=== PATIENT | female | born 1975 | race African-American/Black ===

== ENCOUNTER 2017-04-03 08:18 | Outpatient (CLI) | payer BC ==
--- NOTE | 2017-04-03 14:20 | Mammography Report ---
BILATERAL DIGITAL SCREENING MAMMOGRAM with CAD : 04/03/17 08:18:00 CLINICAL: Routine screening. COMPARISON:02/20/16 and 08/30/13 FINDINGS: The breasts are heterogeneously dense, which may obscure small masses. No mass, architectural distortion or suspicious calcifications. IMPRESSION: No mammographic evidence of malignancy. BI-RADS CATEGORY: 2 -- Benign RECOMMENDATION: Routine mammographic screening in one year. COMMENT: Patient follow-up letters are generated by our [employer] application.
== END 2017-04-03 08:19 | disposition home or self-care (01) ==
LOC: SPVWC 08:18
PROVIDERS: ATTEND Obstetrics & Gynecology
DX: Z12.31 Encounter for screening mammogram for malignant neoplasm of breast (principal)
CPT/HCPCS: 77067; G0202

== ENCOUNTER 2019-03-04 13:41 | Outpatient (CLI) | payer BC ==
--- NOTE | 2019-03-08 08:25 | Mammography Report ---
DIGITAL SCREENING MAMMOGRAM WITH TOMOSYNTHESIS WITH CAD, 03/04/2019 INDICATION: Routine Screening Mammography. TECHNIQUE: Digital bilateral 2D and 3D mammography with tomosynthesis was obtained in the craniocaud al and mediolateral oblique projections. Computer-Aided Detection (CAD) analysis was used for interp retation of this study. COMPARISON: 04/03/2017 and 02/20/2016 FINDINGS: Breast Density: The breasts are heterogeneously dense, which may obscure small masses. Bilateral asymmetries require additional imaging. A right lower inner oval circumscribed density imag e 43 of the MLO yvette series and image 11 of the CC yvette series. A left lower inner focal asymmetry im age 11 of the CC yvette series and image 43 of the MLO yvette series and an oval left retroareolar descri bed density image 26 of the CC yvette series and image 35 of the MLO yvette series. No architectural dist ortion or suspicious calcifications. IMPRESSION: Bilateral asymmetries requiring additional imaging. Recommend recall for left spot magnif ication views and bilateral targeted breast ultrasound. BI-RADS Category 0: Incomplete. Needs additional imaging evaluation and/or prior mammograms for fidencio rison. A "normal" or negative report should not discourage follow up or biopsy of a clinically significant f inding. A written summary of these findings will be mailed to the patient. The patient will be entered into a mammography reporting system which will generate a reminder letter for the patient's next appointmen t at the appropriate interval. The [employer] recommends yearly mammograms starting at age 40 and continuing as l huey as a woman is in good health. Breast MRI is recommended for women with an approximate 20-25% or greater lifetime risk of breast cancer, including women with a strong family history of breast or ova katherin cancer or who have been treated for Hodgkin's disease. Signer Name: Willian Parnell MD Signed: 03/08/2019 8:20 AM Workstation Name: [id number]
== END 2019-03-04 13:42 | disposition home or self-care (01) ==
LOC: SPVWC 13:41
PROVIDERS: ATTEND Obstetrics & Gynecology
DX: Z12.31 Encounter for screening mammogram for malignant neoplasm of breast (principal)
CPT/HCPCS: 77063; 77067

== ENCOUNTER 2019-04-28 15:40 | Outpatient (CLI) | payer BC ==
--- NOTE | 2019-04-28 16:53 | Ultrasound Report ---
LEFT DIGITAL DIAGNOSTIC MAMMOGRAM WITH CAD 04/28/2019 BILATERAL LIMITED BREAST ULTRASOUND INDICATION: Recalled to evaluate bilateral mammographic asymmetries. ABNORMAL MAMMO TECHNIQUE: Digital left mammographic imaging was performed. Spot compression views were obtained. Li mited ultrasound was performed. This examination was interpreted with the benefit of Computer-Aided D etection (CAD) analysis. COMPARISON: 03/04/2019 FINDINGS: Breast Density: The breasts are heterogeneously dense, which may obscure small masses. MAMMOGRAPHIC FINDINGS: Additional left mammographic views of the lower inner quadrant were performed and are negative. Satisfactory effacement of asymmetries. ULTRASOUND FINDINGS: Targeted ultrasound evaluation was performed of the area of interest. Ultrasou nd of the right breast demonstrated an oval superficial solid heterogeneous hypoechoic smooth mass at 4:00 2 cm from the nipple. It measures 7 x 4 x 7 mm and correlates with a circumscribed mammographic mass. Ultrasound of the left breast demonstrated a retroareolar benign cyst at 11:30 o'clock 2 cm fr om the nipple measuring 1.7 x 1.5 x 0.8 cm. It correlates with a retroareolar circumscribed density o n the mammogram. IMPRESSION: 1. A solid 7 mm right breast mass at 4:00 2 cm from the nipple. Recommend ultrasound guided needle bi opsy to exclude malignancy. 2. A benign 1.7 cm retroareolar cyst of the left breast. Recommend routine screening of the left caterina st. I discussed the findings and the recommendation for an ultrasound-guided needle biopsy of the right b reast with the patient at the time of the exam. Follow up recommendation: Biopsy BI-RADS Category 4: Suspicious for Malignancy. A "normal" or negative report should not discourage follow up or biopsy of a clinically significant f inding. A written summary of these findings will be mailed to the patient. The patient will be entered into a mammography reporting system which will generate a reminder letter for the patient's next appointmen t at the appropriate interval. According to the [employer], yearly mammograms are recommended starting at age 40 and continuing as long as a woman is in good health. Breast MRI is recommended for women with an duc roximately 20-25% or greater lifetime risk of breast cancer, including women with a strong family his tory of breast or ovarian cancer and women who have been treated for Hodgkin's disease. Signer Name: Willian Parnell MD Signed: 04/28/2019 4:49 PM Workstation Name: [id number]
== END 2019-04-28 15:41 | disposition home or self-care (01) ==
LOC: SPVWC 15:40
PROVIDERS: ATTEND Obstetrics & Gynecology
DX: N63.14 Unspecified lump in the right breast, lower inner quadrant (principal); N60.02 Solitary cyst of left breast; R92.8 Other abnormal and inconclusive findings on diagnostic imaging of breast

== ENCOUNTER 2019-05-06 14:12 | Outpatient (CLI) | payer BC, OTHER | END 2019-05-06 14:13 | disposition home or self-care (01) | LOC: LABHHL 14:12 | PROVIDERS: ATTEND Surgery | DX: N63.14 Unspecified lump in the right breast, lower inner quadrant (principal) | CPT/HCPCS: 88305 ==

== ENCOUNTER 2020-03-06 08:08 | Outpatient (CLI) | payer BC ==
--- NOTE | 2020-03-06 08:46 | Mammography Report ---
DIGITAL SCREENING MAMMOGRAM WITH CAD, 03/06/2020 CLINICAL INFORMATION / INDICATION: Routine screening mammography. TECHNIQUE: Digital bilateral 2D mammography was obtained in the craniocaudal and mediolateral obliqu e projections. This examination was interpreted with the benefit of Computer-Aided Detection analysis . COMPARISON: Prior mammograms 11/10/2019, 05/06/2019, 03/04/2019, and 04/03/2017 FINDINGS: Breast Density: The breasts are heterogeneously dense, which may obscure small masses. No dominant mass, suspicious calcifications, or architectural distortion in the left breast. There is an 8 mm focal asymmetric density seen in the subareolar right breast, anterior to middle dep th. Additionally, there are 3 mm grouped calcifications in the 11:00 position of the right breast, mi ddle depth. There is a stable biopsy clip seen in the lower inner quadrant of the right breast. IMPRESSION: 1. A focal asymmetric density in the right breast requires further evaluation with spot compression v iews and targeted ultrasound if needed. 2. A small group of indeterminate calcifications in the right breast requires further evaluation with magnification views. Follow up recommendation: Special View: Spot BI-RADS Category 0: Incomplete. Needs additional imaging evaluation and/or prior mammograms for fidencio rison. A "normal" or negative report should not discourage follow up or biopsy of a clinically significant f inding. A written summary of these findings will be mailed to the patient. The patient will be entered into a mammography reporting system which will generate a reminder letter for the patient's next appointmen t at the appropriate interval. The [employer] recommends yearly mammograms starting at age 40 and continuing as l huey as a woman is in good health. Breast MRI is recommended for women with an approximate 20-25% or greater lifetime risk of breast cancer, including women with a strong family history of breast or ova katherin cancer or who have been treated for Hodgkin's disease. Signer Name: Palmira Marsh MD Signed: 03/06/2020 8:41 AM Workstation Name: [id number]
--- NOTE | 2020-03-06 14:17 | Mammography Report ---
RIGHT DIGITAL DIAGNOSTIC MAMMOGRAM WITH CAD CONVENTIONAL, 03/06/2020 RIGHT LIMITED BREAST ULTRASOUND CLINICAL INFORMATION / INDICATION: Patient presents as a callback from screening mammogram for furthe r evaluation of a focal asymmetric density as well as calcifications in the right breast. -abn mammo TECHNIQUE: Digital right mammographic imaging was performed. Spot compression views were obtained. Li mited ultrasound was performed. This examination was interpreted with the benefit of Computer-Aided D etection (CAD) analysis. COMPARISON: Screening mammogram earlier same day and right breast ultrasound 04/28/2019 FINDINGS: Breast Density: The breasts are heterogeneously dense, which may obscure small masses. MAMMOGRAPHIC FINDINGS: As seen on screening mammogram earlier the same day, there are 3 mm grouped am orphous calcifications seen in the 10:00 position of the right breast, middle depth. A similar 3 mm g roup of calcifications is seen in the anterior subareolar right breast. The previously described focal asymmetric density in the subareolar right breast is much less conspic uous on spot compression views, suggesting overlapping fibroglandular tissue. Targeted ultrasound per formed for confirmation. There is a stable biopsy clip seen in the lower inner quadrant of the right breast. ULTRASOUND FINDINGS: Targeted ultrasound evaluation was performed of the area of interest. Targeted ultrasound of the subareolar right breast reveals dense fibroglandular tissue. There is no sonograph ic correlate for the previously questioned focal asymmetric density, confirming that this represents overlapping fibroglandular tissue. There is a stable oval mass in the right breast 4:00 position loca cierra 2 cm from the nipple measuring up to 8 x 2 x 7 mm with adjacent biopsy clip, compatible with prio r benign biopsy site. IMPRESSION: 1. There are 2 similar appearing groups of amorphous calcifications in the right breast. Stereotactic biopsy of the small group at 10:00 is recommended; if this is benign, the additional group can be co nsidered benign (the anterior subareolar group would be too far anterior for stereotactic biopsy). 2. The previously described focal asymmetric density in the right breast is less conspicuous on addit ional views and without sonographic correlate, compatible with overlapping fibroglandular tissue. 3. Stable benign biopsy site in the right breast. Follow up recommendation: Biopsy BI-RADS Category 4: Suspicious for Malignancy. A "normal" or negative report should not discourage follow up or biopsy of a clinically significant f inding. A written summary of these findings will be mailed to the patient. The patient will be entered into a mammography reporting system which will generate a reminder letter for the patient's next appointmen t at the appropriate interval. According to the [employer], yearly mammograms are recommended starting at age 40 and continuing as long as a woman is in good health. Breast MRI is recommended for women with an duc roximately 20-25% or greater lifetime risk of breast cancer, including women with a strong family his tory of breast or ovarian cancer and women who have been treated for Hodgkin's disease. Signer Name: Palmira Marsh MD Signed: 03/06/2020 2:12 PM Workstation Name: [email or web address]
== END 2020-03-06 08:09 | disposition home or self-care (01) ==
LOC: SPVWC 08:08
PROVIDERS: ATTEND Surgery
DX: Z12.31 Encounter for screening mammogram for malignant neoplasm of breast (principal); N64.89 Other specified disorders of breast; N63.14 Unspecified lump in the right breast, lower inner quadrant
CPT/HCPCS: 77067

== ENCOUNTER 2020-03-14 13:24 | Outpatient (CLI) | payer BC ==
--- NOTE | 2020-03-14 16:09 | Mammography Report ---
RIGHT DIAGNOSTIC MAMMOGRAM INDICATION: Right breast upper outer breast calcifications COMPARISON: 03/06/2020, 11/10/2019 05/06/2019. FINDINGS: Right breast CC and LM projection mammograms were obtained. These document accurate locatio n of the biopsy marker at the site of a recent stereotactic biopsy of right upper outer breast calcif ications. IMPRESSION: Mammographic images documenting accurate location of a biopsy marker status post right upper outer br east stereotactic biopsy of calcifications. BI-RADS Category 4: Suspicious for Malignancy. Signer Name: Sheldon Luke MD Signed: 03/14/2020 4:08 PM Workstation Name: [id number]
--- NOTE | 2020-04-04 07:51 | Mammography Report ---
PERCUTANEOUS STEREOTACTIC-GUIDED RIGHT BREAST BIOPSY WITH MARKER PLACEMENT HISTORY: Right breast calcifications. CONSENT: Technique, risks and alternatives were discussed with the patient and informed written conse nt obtained. PROCEDURE: The patient was placed in the prone position on the Siemens biopsy table. The calcifications at the 1 0:00 position in the right breast were targeted mammographically. Form Coverer and stereo pair images were a cquired to generate the computer-derived coordinates for targeting. The skin overlying the chosen bio psy site were cleansed with Betadine. The skin and superficial soft tissues were anesthetized with a small amount of buffered 1% lidocaine. The deeper soft tissues were anesthetized with buffered 1% l idocaine with epinephrine. A small dermatotomy was created through which the Atec biopsy device was placed. Pre and post fire st ereo pair images were acquired to confirm appropriate needle trajectory. Using vacuum assistance, mul tiple core specimen samples were acquired. A post procedure specimen radiograph confirmed calcificati ons within core specimen samples. A biopsy marker was deposited at the biopsy site, and appropriate biopsy marker deposition confirmed via a stereo pair image. Manual pressure was applied at the biopsy site to achieve hemostasis. The incision margins were appro ximated with Steri-Strips. Postprocedure care instructions were administered in both verbal and writt en forms. The patient voiced understanding and departed the [facility] in stable, satisfactory con dition. IMPRESSION Technically successful percutaneous stereotactic-guided right breast biopsy with marker placement. Pathology results are BENIGN revealing benign breast tissue with proliferative fibrocystic changes in cluding usual ductal hyperplasia, columnar cell change, and fibroadenomatous change. No evidence of a typical proliferative lesion or carcinoma was identified. The imaging appearance is concordant with t pathologic result. As noted on prior exam performed 03/06/2020, there are additional calculations located more anteriorly which were felt to be benign given the current pathology results. A six-month diagnostic right breast mammogram with magnification views of these calcifications is recommended. Signer Name: Sheldon Luke MD Signed: 04/04/2020 7:47 AM Workstation Name: [id number]
== END 2020-03-14 13:25 | disposition home or self-care (01) ==
LOC: SPVWC 13:24
PROVIDERS: ATTEND Surgery
DX: R92.1 Mammographic calcification found on diagnostic imaging of breast (principal); N64.89 Other specified disorders of breast; R92.0 Mammographic microcalcification found on diagnostic imaging of breast; N62 Hypertrophy of breast
CPT/HCPCS: 19081; 77065; 88305; A4648

== ENCOUNTER 2020-09-11 08:49 | Outpatient (CLI) | payer BC ==
--- NOTE | 2020-09-11 09:39 | Mammography Report ---
RIGHT DIAGNOSTIC MAMMOGRAM INDICATION: Follow-up evaluation from benign right breast stereotactic biopsy. COMPARISON: 03/14/2020, 03/06/2020, 03/06/2020, 03/04/2019, 04/01/2017. FINDINGS: Right breast CC, MLO, and ML projections were obtained as well as magnification to the righ t upper outer breast. These images show a biopsy marker in the right upper outer breast at the site o f benign stereotactic biopsy. A few residual calcifications are noted there without interval detrimen yaima change. A biopsy marker and stable lesion in the right lower inner breast is also noted. No new s uspicious finding is identified mammographically. Of note, a previously suspected asymmetry in the ri ght subareolar breast for which no sonographic correlate was identified does not persist on the curre nt spot views. There is stable mammographic appearance in this region dating back to at least 2016 wh ich would support a benign etiology. IMPRESSION: No suspicious findings on follow-up evaluation of benign right upper outer breast stereotactic biopsy . A routine screening mammogram which will be due in February 2021 is recommended. BI-RADS Category 2: Benign. Recommend routine screening mammography in one year Signer Name: Sheldon Luke MD Signed: 09/11/2020 9:35 AM Workstation Name: [id number]
== END 2020-09-11 08:50 | disposition home or self-care (01) ==
LOC: SPVWC 08:49
PROVIDERS: ATTEND Surgery
DX: R92.8 Other abnormal and inconclusive findings on diagnostic imaging of breast (principal)